=== PATIENT | male | born 1990 | race Hispanic/Latino ===

== ENCOUNTER 2020-09-04 14:59 | Emergency (ER) | payer OTHER ==
[2020-09-04] MEDS ORDERED: KETOROLAC TROMETHAMINE 30MG/ML ONE (15:34)
[2020-09-04] MEDS ORDERED: FAMOTIDINE/PF 20 MG/2 ML VIAL IV ONE (15:34)
[2020-09-04 15:35] LABS: BASOPHILS % (AUTO) 0.3 % (0.0-5.0); EOSINOPHILS % (AUTO) 0.5 % (0.0-8.0); HEMATOCRIT 43.8 % (42-54); LYMPHOCYTES % (AUTO) 15.6 % (21.0-51.0); MEAN CORPUSCULAR HEMOGLOBIN 28.7 pg (27.0-33.0); MEAN CORPUSCULAR HGB CONC 35.6 g/dL (32.0-36.0); MEAN CORPUSCULAR VOLUME 80.7 fL (79-99); MONOCYTES % (AUTO) 7.2 % (3.0-13.0); NEUTROPHILS % (AUTO) 75.5 % (40.0-77.0); PLATELET COUNT (AUTO) 166 K/uL (130-400); RED BLOOD CELL COUNT(AUTO) 5.43 MIL/uL (4.50-6.20); RED CELL DISTRIBUTION WIDTH 13.2 % (11.0-15.5); WHITE BLOOD COUNT (AUTO) 5.8 K/uL (4.8-10.8)
[2020-09-04 15:48] LABS: CREATININE 0.8 mg/dL (0.5-1.5)
[2020-09-04] MEDS ORDERED: LACTATED RINGERS 1000ML 1,000 ML IV ONE (15:48)
[2020-09-04 15:52] LABS: BILIRUBIN,TOTAL 0.7 mg/dL (0.2-1.0); TOTAL PROTEIN, SERUM 8.6 g/dL (6.0-8.3)
== END 2020-09-04 17:07 | disposition home or self-care (01) ==
LOC: EDH 14:59 → EEVIPCON 14:59 → EDH 17:07
DX: K29.20 Alcoholic gastritis without bleeding (principal); Z90.49 Acquired absence of other specified parts of digestive tract; Z86.16 Personal history of COVID-19; E11.9 Type 2 diabetes mellitus without complications
CPT/HCPCS: 36415; 80053; 82150; 83690; 85025; 96361; 96374; 96375; 99284; J1885; J3490; J7120